=== PATIENT | male | born 1950 ===

== ENCOUNTER 2019-11-30 05:54 | Inpatient (IN) | payer MEDICARE, SELFPAY ==
[2019-11-29 07:23] VITALS: BMI 28.7
[2019-11-30] VITALS (17 sets, daily range): BP systolic 118–171; BP diastolic 51–93; PULSE 71–91; RESP 6–19; TEMP 36.1–36.8; O2SAT 63–99; BMI 30.2
--- NOTE | 2019-11-30 | DI.RAD.S_ITS ---
PROCEDURE: XR LUMBAR SPINE 2-3V INDICATIONS: L3-4 XLIF WITH POSTERIOR INSTRUMENTATION TECHNIQUE: 4 views of the lumbar spine were acquired. COMPARISON: None. FINDINGS: Intraoperative spot fluoroscopic views demonstrating L3-L4 posterior spinal fixation hardware with interbody cage graft. There is expected intraoperative alignment Dictated by: Zaheer Boss M.D. on 11/30/2019 at 12:56 Approved by: Zaheer Boss M.D. on 11/30/2019 at 12:57
[2019-11-30] MEDS: LACTATED RINGERS 1,000 ML 42 ML IV ×2 (07:10→09:38)
--- NOTE | 2019-11-30 07:22 | P.OP_ITS ---
Operative Date/Time/Diagnoses Date of procedure: 11/30/19 Time of procedure: 11:01 Pre-op diagnosis: Lumbar stenosis with radiculopathy Lumbar spondylolisthesis Post-op diagnosis: same Procedure & Clinicians Procedure: L3-4 anterior fusion with cage L3-4 posterior fusion L3, L4 screws Iliac crest bone graft aspirate L3-4 laminectomy Use of microscope Placement of epidural catheter Same procedure as scheduled: Yes Indications: [age] year old male with intractable pain from stenosis. They had failed conservative management and requested operative intervention. Risks and benefits of surgery were discussed and appropriate consents were obtained. Surgeon: Khang Irwin Sand Cutting Machine Operator: Gina Guerra Anesthesia Type: General Operative Notes Findings: None Closure Type: primary Specimen(s): none sent Prosthetic devices, grafts, tissues, transplants, or devices: NuVasive MAS Reline screws and XLIF cage Applied: catheter Estimated Blood Loss (mL): 20 Blood products transfused: none Procedure in detail: Patient was brought to the operating room and intubated on the table. Time-out was performed. They were then rolled over to the lateral decubitus position with the [id number]. The table was bent and they were taped down in the correct position. X-rays were taken to confirm a true AP and lateral. Preoperative antibiotics were given. The left flank was prepped and draped in standard sterile fashion. Using fluoroscopy, a 3 cm incision was made above the iliac crest. We bluntly dissected down with Metzenbaum scissors and split the 3 abdominal muscle layers. We dissected out the retroperitoneal space and using finger guidance, brought our 1st dilator down to the psoas muscle. Using neuromonitoring and fluoroscopy, we placed it through the psoas onto the L3-4 disc space in an anterior position and gradually pulled the dilator posteriorly along the disc space. We placed our guidewire and measured our depth for the retractor. We then dilated with the next 2 dilators and then placed our retractor over the dilators. Position was confirmed with fluoroscopy and the retractor was locked down to the bar. We opened up the retractor and checked with neuro monitoring. We then placed the mary alice and again checked with neuro monitoring. The retractor was opened further and the ALL retractor was placed. An annulotomy was performed. We then performed a complete diskectomy with ring curette, pituitary, box osteotome. A López was advanced across the disc space under fluoroscopy to release the lateral annulus on the opposite side. We then used sequentially larger trials and confirmed under fluoroscopy. An XLIF cage was packed with Osteocel bone graft and impacted into the L3-4 disc space with fluoroscopy for the anterior fusion at this level. The wound was irrigated. The retractor was closed down. The mary alice was removed. We carefully removed the retractor with direct visualization to make sure there was no neurovascular or abdominal injury. Final x-rays were taken. The muscle fascia was closed, superficial tissue was closed. The skin was closed. Sterile dressing was placed. The patient was then rolled over on the well-padded prone position on the Humphrey table. Using fluoroscopy for localization, a 5 cm incision was made on the right side. We percutaneously placed Jamshidi needles down the right pedicles of L3 and L4 under fluoroscopic guidance with neuro monitoring. These were switched out over guidewires. We then tapped and placed our MAS Reline screw shanks. We opened up the retractor and cleared out the gutter and medially along the lamina. The L3 and L4 transverse processes were decorticated with a bur. We then brought in the microscope. A laminectomy was performed at L3-4 with a bur and Kerrison rongeurs from the right-hand side. We carefully depressed the dura to reach to the opposite side and decompress the entire central canal. We cleared out the neural foramen. In the end the ball probe could be placed cephalad and caudally across to the opposite side in the foramen and everything was open. The wound was copiously irrigated. An epidural catheter was primed with 4mL of 0.5% bupivacaine, 100 mcg fentanyl, 4 mg Duramorph, 1 mg Stadol. The dura was depressed under the cephalad lamina with a ball probe and the epidural catheter was gently advanced 6 cm cephalad. The screw heads were placed on the shanks. The filiberto was measured and placed and locked down with set screws. A small stab incision was made over the PSIS and a Jamshidi needle was placed into the iliac crest and several mL of bone marrow was aspirated. This was mixed with our locally harvested bone graft as well as the remaining Osteocel and placed in the posterolateral gutter for fusion at L3- 4. The fascia was then closed. The epidural catheter was then injected without resistance. The catheter was pulled and we closed more over the fascia. We then went over to the left side. Again using fluoro a 4 cm incision was made on the left. Jamshidi needles were advanced on the left pedicles of L3 and L4 using fluoroscopy and neural monitoring. These were switched to guidewires, tapped, and the screws were placed. A filiberto was placed and locked down with the set screws. The wound was irrigated. The fascia was closed. Vancomycin powder was placed in the wounds. The superficial and skin were closed. Sterile dressing was placed. The patient was then rolled over, extubated, brought to the recovery room with no complications. Complications: none Post-operative Condition: stable Disposition: PACU Plan for aftercare: Inpatient. Up with PT.
--- NOTE | 2019-11-30 07:22 | PM.PREOP ---
Pre-operative Note Interval Note History & Physical reviewed/Exam performed by Physician: Yes Changes to H&P: No
[2019-11-30] MEDS: CEFAZOLIN 2 GM/100 ML FROZ.PIGGY IV ×3 (07:50→23:25)
--- NOTE | 2019-11-30 08:29 | SUR.OPER ---
Right lateral on padded OR table. Head on pillow, gel axillary roll, pillow to support left arm. Legs flexed, pillows between legs, gel pad under down leg and ankle. Multiple passes of 3 inch cloth tape across shoulder, hip, upper and lower legs to secure patient on OR table.
--- NOTE | 2019-11-30 08:29 | SUR.OPER ---
Prone on spine table, head in foam head support, padded chest and pelvic supports, gel pad at knees, lower legs supported by pillows; nipples, genitalia and toes free of pressure, arms secured on foam padded arm boards at <90 degrees abduction. Tape over blanket at thigh secured to table.
[2019-11-30] MEDS: SODIUM CHLORIDE 0.9% 1,000 ML, GENTAMICIN 80 MG IRR ×2 (08:42→08:43)
[2019-11-30] MEDS: VANCOMYCIN 1,000 MG VIAL 1000 MG TOP (08:42)
[2019-11-30] MEDS: THROMBIN (RECOMBINANT) 5,000 UNIT VIAL 5000 UNIT TOP (08:42)
[2019-11-30] MEDS: BUPIVACAINE 0.5% (PF) 4 ML, MORPHINE-PF 4 MG, BUTORPHANOL 1 MG, fentaNYL 100 MCG INJ (08:44)
[2019-11-30] MEDS: hydrOXYzine pamoate 25 MG CAPSULE PO (12:15)
--- NOTE | 2019-11-30 12:19 | SUR.PHASEI ---
Patient denies pain/nausea. Gave vistaril for itchy nose. BRIANNE's x4.
[2019-11-30] MEDS: LACTATED RINGERS 1,000 ML 125 ML IV (13:15)
[2019-11-30] MEDS: GABAPENTIN 300 MG CAPSULE PO ×2 (13:16→21:25)
[2019-11-30] MEDS: CELECOXIB 200 MG CAPSULE 400 MG PO (13:16)
[2019-11-30] MEDS: ACETAMINOPHEN 325 MG TABLET 975 MG PO (13:16)
[2019-11-30] MEDS: ONDANSETRON 4 MG/2 ML INJ IV ×2 (14:53→19:46)
[2019-11-30] MEDS: DEXAMETHASONE 10 MG/ML VIAL IV (15:03)
--- NOTE | 2019-11-30 15:18 | PC.NURSE ---
Ortho: Various issues since patient arrival. First - O2 sat in the 80's when he falls asleep. Does appear to have brief apnea episodes. O2 is off and on per pt, he removes it. Pt determined about his care needs and what he wants and doesn't want. RT has been working with pt. When he is awake his sats are in the low 90's. Asleep sats down to 82%. If wears O2 when he falls asleep his sat will be 90-92%. LEOPOLDO Munguia reported rr down to 1. Have not seen pt as low as that but rr has been down to 12 for this nurse, pt tends to breath shallow and abd breaths. Pt doesn't report a hx of sleep apnea but does appear to have it. Non smoker. Rt is deciding O2 needs. PT reported a bp with dyastolic in the 100's. On repeat bp check the dys was down to the 70's which is where he has been, currently bp is 142/73. Next issue was itching. Pt reported severe itching, got some vistaril in pacu, refused more when here in room as well as benadryl. Reports both medications make him to sleepy. Requesting nubain. 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 Did get order for same but currently there is a nation wide shortage and pt made aware. Last issue is nausea, pt refused to use an emesis bag and vomited in the garbage can. Dr. Irwin here right after pt vomited and he was made aware of O2 sats, possible undiagnosed sleep apnea, bp, itching and pt's frustration of not having relief of his itching. See new orders. Pt did receive zofran and dexamethasone. Pt reports for now nausea has resolved, itching is much improved, still present but not as intense. Cont w/poc.
--- NOTE | 2019-11-30 15:46 | PT-IP ANOTE ---
PT orders received and chart reviewed. Met with pt to initiate PT evaluation, but he had 3 episodes emesis during conversation and BP ranging 161/99 to 180/103. This PT gathered subjective history and charted same but deferred objective exam. Checked on pt at 1545 to complete evaluation, but pt was sleeping soundly, SpO2 ~96% on 9L/min high flow O2 via mask. May attempt to check on pt one more time before end of day. If unable, will follow up morning of 12/01/19.
[2019-11-30] MEDS: METOCLOPRAMIDE 10 MG/2 ML INJ IV (19:46)
[2019-11-30] MEDS: CELECOXIB 200 MG CAPSULE PO (21:25)
[2019-11-30] MEDS: DOCUSATE 100 MG CAPSULE PO (21:25)
[2019-11-30] MEDS: SENNOSIDES 8.6 MG TABLET 17.2 MG PO (21:25)
[2019-11-30] MEDS: raNITIdine 150 MG CAPSULE PO (21:25)
[2019-11-30] MEDS: LORazepam 2 MG/ML INJ 0.25 MG IV (23:31)
[2019-12-01] VITALS (9 sets, daily range): BP systolic 116–140; BP diastolic 59–81; PULSE 78–96; RESP 15–18; TEMP 36.6–37.6; O2SAT 85–98
--- NOTE | 2019-12-01 04:22 | PC.NURSE ---
At start of shift Pt was on 9L Oxymask at start of shift. He took off his mask and held his sats on room air for about 5minutes and then desatted to 84%. He was placed back on 4L Oxymask and has been at around 96% since. He also vomitted at 2345 a large amount into the garbage can (refused emesis bag stating garbage can was easier). Ativan was given which proved effective. Denies any pain. LR@125mL/hr [place] patent with clear yellow urine. B/L SCDs on during night. Has not been OOB yet
[2019-12-01 05:38] LABS: Hematocrit 37.7 % (41-53); Hemoglobin 12.6 g/dL (13.5-17.5)
[2019-12-01] MEDS: ONDANSETRON 4 MG/2 ML INJ IV ×2 (05:57→11:03)
[2019-12-01] MEDS: METOCLOPRAMIDE 10 MG/2 ML INJ IV (05:57)
[2019-12-01] MEDS: LACTATED RINGERS 1,000 ML 125 ML IV ×3 (06:11→23:54)
[2019-12-01] MEDS: raNITIdine 150 MG CAPSULE PO ×2 (07:52→21:34)
--- NOTE | 2019-12-01 08:00 | PM.PNPO.1 ---
Subjective Subjective Date Patient Seen: 12/01/19 Time Patient Seen: 08:00 Interval history: Nausea and itching or much better. Minimal pain. Exam Vital Signs (past 8 hours): - 12/01/19 00:05 12/01/19 00:10 12/01/19 05:59 Temperature 98.1 F Pulse Rate 85 Respiratory Rate 15 Blood Pressure 133/72 Pulse Oximetry 85 L 95 95 Oxygen Delivery Method Oximask Oxygen Flow Rate 4 Const Orientation: alert and oriented x3 Back/Spine/Pelvis Other: CDI. 5/5 motor both lower extremities Objective Labs Result Diagrams: 12/01/19 05:07 Labs: Laboratory Results - last 24 hr 12/01/19 05:07 Hgb 12.6 L Hct 37.7 L Assessment & Plan Post-op Postoperative Procedures: Procedures Operation Date: 11/30/19 07:45 Actual Procedures Side Surgeon p L34 laminectomy and anteroior/posterior instrumentated fusion w/ bone graft Khang Irwin MD he is doing much better now that the nausea and the itching are improved. We are going to mobilize him today with physical therapy. Anticipate discharge home in the next few days.
--- NOTE | 2019-12-01 09:13 | PT.IIE ---
Current Diagnoses Spondylolisthesis, lumbar region (11/30/19) Spinal stenosis, lumbar region without neurogenic claudication (11/30/19) Surgery Performed Operation Date: 11/30/19 07:45 Actual Procedures p L34 laminectomy and anteroior/posterior instrumentated fusion w/ bone graft - Khang Irwin MD Surgical History (Last Updated 11/29/19 @ 07:42 by Neisha Braxton RN) Hx of arthroscopy of right knee (Acute ~1990) Medical History (Last Updated 11/29/19 @ 07:44 by Neisha Braxton RN) Heartburn (Acute) Palpitations (Acute) Prostatitis (Acute) Retinal tear of right eye (Acute) Sciatica (Acute) Physical Therapy Inpatient Evaluation/Re-Eval M1 PT/OT-IP Prior Functional Status Start: 11/30/19 13:26 Freq: NEEDED Status: Active Protocol: Document 12/01/19 09:13 AB (Rec: 12/01/19 12:08 AB [id number]) Medical Review Prior Functional Status Medical History Reviewed Yes Communication able to make needs known Mobility and Gait pt stated that he is independent with all mobilities and ambulation without AD Activities of Daily Living and IADL's Per OT's note: Pt states he was independent with all ADL's but slow with dressing lower body due to pain. He lives alone, drives, does all his own shopping, cooking, meds management. Social History Household Members none Living Arrangements Apartment/Condo Number of Floors (Floors) One Floor Number of Stairs To Enter/Railing? 12 steps to enter with bilateral wide rails and can only hold on to one rail at a time Home Environment Standard Height Toilet,Tub/ Shower Doors Additional Social History Comment pt stated that he plans to take a cab and go to a local apartment and when ready to go home will drive himself back home. M2 PT-IP Current Condition Start: 11/30/19 13:26 Freq: NEEDED Status: Active Protocol: Document 12/01/19 09:13 AB (Rec: 12/01/19 12:08 AB [id number]) Physical Therapy Current Condition Current Condition Evaluation Date 12/01/19 Treatment Diagnosis s/p L3-4 ant/post fusion/lami; difficulty in walking Onset Date 11/30/2019 Precautions Lumbar Precautions Log Roll,No Twisting,Limit Bending,Lifting Restriction of 10 lbs,Gait Belt above Incisional Area M3 PT-IP Subjective Start: 11/30/19 13:26 Freq: NEEDED Status: Active Protocol: Document 12/01/19 09:13 AB (Rec: 12/01/19 12:08 AB [id number]) Subjective Physical Therapy Visit Type Type Initial Evaluation Visit Start Time 09:13 Visit Stop Time 09:41 Total Visit Minutes 28 Number of FREIGHT DELIVERY DRIVER Visits 0 Physical Therapy Visit Comments Patient Comments pt agreeable to do PT Therapy Pain Assessment Pain When Pain Assessed During Mobility Pain Present Pain Present Pain Reported Location Back Intensity 3 Scale Used Numeric (1 - 10) Pain Management Techniques Re-positioning,Timing of Activity with Medications M4 PT-IP Mobility and Gait Start: 11/30/19 13:26 Freq: NEEDED Status: Active Protocol: Document 12/01/19 09:13 AB (Rec: 12/01/19 12:08 [id number]) PT-Bed Mobility Assessment Rolling Type of Rolling Log Rolling Level of Assist Minimal Assistance Supine to Sit Supine to Sit Minimal Assistance PT-Transfer Assessment Sit to and From Stand Sit to and from Stand Minimal Assistance,1 Person Assistance Equipment Transfer Assistive Device Gait Belt,Front Wheeled Walker Orthotic/Prosthetic Devices or Brace: No Transfers Transfer Destination Chair Transfer Technique Stand Step Pivot Transfer Ability Level of Assist Minimal Assistance,1 Person Assistance,Use of Upper Extremities Comments Mobility Comments pt stated that he has been nauseated. reviewed back precautions and log roll bed mobility. pt ocmpleted supine to sit min A and max cues. pt was able to sit on EOB SBA. c/o nausea and stated that he has to sit for ~ 20 min. BP checked 143/84. pt agreed to stand and transfer to the chair. completed sit to stand min A and cues and ocmpleted stand step transfer using FWW min A and cues. pt wanted to sit on chair for awile due to nausea. positioned pt on chair. call light and table placed within reach. Gait Assessment Comments Gait Comments able to take steps during transfers but did not ambulate due to c/o nausea PT-Balance Assessment Sitting Balance and Reactions Static Sitting Balance Ability Good Dynamic Sitting Balance Ability Good Standing Balance and Reactions Static Standing Balance Ability Fair Dynamic Standing Balance Ability Fair Device Used FWW M5 PT-IP Objective Assessments Start: 11/30/19 13:26 Freq: NEEDED Status: Active Protocol: Document 12/01/19 09:13 AB (Rec: 12/01/19 12:08 AB [id number]) Orientation Orientation/Cognition Level of Alertness Alert Orientation Name,Place,Situation Language Function Ability No Deficits Noted Safety Awareness Understands Safety Issues Memory Description No Deficits Noted Gross Range of Motion Lower Extremity ROM Assessment Within Functional Limits Strength Lower Extremity Strength Assessment Bilaterally Impaired Hip 3+/5 Knee 3+/5 Coordination Assessment Gross Coordination Gross Coordination WNL Sensation Assessment Sensation Gross Sensation WNL Muscle Tone Muscle Tone WNL Yes M6 PT-IP Treatment Start: 11/30/19 13:26 Freq: NEEDED Status: Active Protocol: Document 12/01/19 09:13 AB (Rec: 12/01/19 12:08 [id number]) Physical Therapy Treatment Education Education Provided Precautions,Weight Bearing Status,Post-Op Packet,Safety M7 PT-IP Assessment and Plan Start: 11/30/19 13:26 Freq: NEEDED Status: Active Protocol: Document 12/01/19 09:13 AB (Rec: 12/01/19 12:08 [id number]) PT Summary Assessment and Plan Potential Rehabilitation Potential Good Status of Condition at Evaluation Evolving Summary Impairments Pain,ROM,Strength,Balance, Coordination,Sensation,Tone, Cognition,Bed Mobility, Transfers,Gait,Activity Tolerance Assessment Summary pt requiring min A with mobility at this time and did not tolerate much activity due to c/o nausea. pt lives alone and will not have any assistance at home. d/c plan depending on progress in mobility. informed regarding need for FWW and pt aware but has not decided if he wants to purchase one. Goals Bed Mobility Goal Independent Transfer Goal Independent,Front Wheeled Walker Gait Goal Independent,Front Wheel Walker Gait Distance 200 Other Goals up/down 12 steps 1 rail mod I Days to Meet Goals 5 Frequency of Treatment Frequency Of Treatment Twice a Day Treatment Plan Physical Therapy Treatment Plan Bed Mobility Training,Transfer Training,Gait Training, Therapeutic Exercise,Balance Retraining,Post Op Education, Discharge Planning,Hot or Cold Pack,Neuromuscular Re-ed, Coordination Retraining,Manual Therapy Recommendations To Nursing Amount of Assist Needed 1 Person Assist Discharge Recommendations PT Discharge Recommendations Home with Assistance,Home Health
--- NOTE | 2019-12-01 09:13 | CM.IDA ---
Discharge Planning/Care Management CM Discharge Assessment Start: 12/01/19 09:04 Freq: Status: Active Protocol: Document 12/01/19 09:04 TABITHA (Rec: 12/01/19 09:12 TABITHA [id number]) Discharge Planning Assessment Assigned Tmr Teacher ROSA Cifuentes DPOA/Assigned Designee Name Haleigh Yusuf, sister Contact Information KYLE Herron [phone] Advance Directives? No Advance Directives on File No History Provided By Patient Prior Living Arrangements Apartment/Condo Household Members none Type of transporation used prior to Drives own vehicle admit Independent with ADL's Yes Is patient alert and oriented? Yes Barriers to Discharge Yes Comment Pt is POD#1 from spinal surgery w/Dr Irwin. PCP: N/A Payer: TRISHA/NAVDEEP Reviewed chart. Pt lives in [place], newly retire, PT assessment pending today. Per pre-anesthesia assessment on chart, pt has arranged no transportation home and no assist once home. Dr Irwin' s prog note indicates pt is expected to DC home in the next 1-2 days. This TECHNOLOGY INTERN will plan to assess further once PT has completed initial assessment and dispo recommendations. ROSA Miller Additional Comment Needs further assess Review Status In Process
--- NOTE | 2019-12-01 11:13 | OT.IP.EVAL ---
Current Diagnoses Spondylolisthesis, lumbar region (11/30/19) Spinal stenosis, lumbar region without neurogenic claudication (11/30/19) Surgery Performed Operation Date: 11/30/19 07:45 Actual Procedures p L34 laminectomy and anteroior/posterior instrumentated fusion w/ bone graft - Khang Irwin MD Past Medical History (Last Updated 11/29/19 @ 07:44 by Neisha Braxton, RN) Heartburn (Acute) Palpitations (Acute) Prostatitis (Acute) Retinal tear of right eye (Acute) Sciatica (Acute) Surgical History (Last Updated 11/29/19 @ 07:42 by Neisha Braxton RN) Hx of arthroscopy of right knee (Acute ~1990) Occupational Therapy Inpatient Evaluation/Re-Eval M1 PT/OT-IP Prior Functional Status Start: 11/30/19 13:26 Freq: NEEDED Status: Active Protocol: Document 12/01/19 11:13 PJRobb (Rec: 12/01/19 16:53 [id number] [id number]) Medical Review Prior Functional Status Medical History Reviewed Yes Diet/Fluid Consistency Regular Communication WNL Mobility and Gait pt states he ambulated independently without a device. Activities of Daily Living and IADL's Pt lives alone and was independent with all self care , IADLS, driving. 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 Prior Functional Level (Other details) Pt unable to identify any family member or friend who could assist him after Social History Household Members none Living Arrangements Apartment/Condo Number of Floors (Floors) One Floor Number of Stairs To Enter/Railing? 12 steps to enter with bilateral wide rails and can only hold on to one rail at a time Home Environment Standard Height Toilet,Tub/ Shower Doors Additional Social History Comment Pt has no DME at home. M2 OT-IP Current Condition Start: 12/01/19 16:28 Freq: Status: Active Protocol: Document 12/01/19 11:13 PJM (Rec: 12/01/19 16:53 PJM [id number]) Occupational Therapy Current Condition Current Condition Evaluation Date 12/01/19 Treatment Diagnosis decr'd self care, mobility s/p L3-4 ant/posterior fusion w/ post op N/V Diagnosis Onset Date 11/30/19 Post Operative Precautions Lumbar Precautions Log Roll,No Twisting,Limit Bending,Lifting Restriction of 10 lbs,Gait Belt above Incisional Area M3 OT- IP Subjective and Pain Start: 12/01/19 16:28 Freq: Status: Active Protocol: Document 12/01/19 11:13 PJM (Rec: 12/01/19 16:53 PJ [id number]) OT- Subjective Occupational Therapy Visit Type Type Initial Evaluation Visit Start Time 10:40 Visit Stop Time 11:13 Total Visit Minutes 33 Occupational Therapy Visit Comments Patient Comments I didn't know what to expect after this surgery. They didn't tell me. Patient/Caregiver Goals to resume independent living alone OT Pain Assessment Pain When Pain Assessed At Rest Pain Present Pain Present Denied Pain M4 OT- IP ADL's Start: 12/01/19 16:28 Freq: Status: Active Protocol: Document 12/01/19 11:13 PJM (Rec: 12/01/19 16:53 [facility] [id number]) OT [id number]-Lqeb-[id number] General Evaluation Self-Feeding Ability Independent Comments OT Self-Feeding Comments poor appetite due to nausea OT ADL-Grooming General Evaluation Grooming Ability Standby Assistance Areas Needing Assistance Retrieving/Set-up of Grooming Items,Face Washing Comments OT Grooming Comments seated in chair OT ADL-Oral Care Comments Oral Care Comments did not occur this session OT ADL-Dressing General Eval Lower Body Dressing Ability Maximum Assistance Assistive Devices Dressing Assistive Devices Long Handled Shoe Horn,Shearer Helper ,Sock Aid Comments OT Dressing Comments began education re: lower body dressing equipt options OT ADL-Toileting General Evaluation Toileting Ability Total Assistance Areas Needing Assistance Empty Catheter or Colostomy Comments OT Toileting Comments llanos still in place OT ADL-Bathing Comments OT Bathing Comments to be assessed as activity level improves M5 OT- IP IADL's Start: 12/01/19 16:28 Freq: Status: Active Protocol: Document 12/01/19 11:13 PJM (Rec: 12/01/19 16:53 PJ [id number]) OT-Instrumental Activities of Daily Living Deficits IADL Deficits Identified Deficits Home Safety Awareness Awareness of Need for Assistance at Home Decreased Awareness Ability to Problem Solve Emergency Able to Problem Solve Situations Home Safety Comments needs cues to problem solve strategies for tasks such as obtaining groceries Medication Management Medication Management No Deficits Identified Money Management Money Management No Deficits Identified Meal Preparation Meal Preparation Comments pt needs assist at present due to low activity tolerance Executive Director Global Brand Marketing Executive Director Global Brand Marketing Comments pt needs assist at present due to low activity tolerance and lumbar spine precautions Driving Driving Comments pt needs assist at present due to low activity tolerance M6 OT- IP Functional Cognition Start: 12/01/19 16:28 Freq: Status: Active Protocol: Document 12/01/19 11:13 PJM (Rec: 12/01/19 16:53 PJM [id number]) Cognitive Factors Limiting Selfcare Function Cognitive Ability Level of Alertness Alert Patient Orientation Name,Age,Birthday,Month,Date, Year,Day of Week,Place, Situation Attention Span Ability Capable of Focused Attention, Capable of Sustained Attention Ability to Follow Commands Able to Follow One Step Commands Memory Description No Deficits Noted Safety Awareness Decreased Ability to Apply Precautions,Underestimates Need for Assistance Problem Solving Ability Needs Assist to Identify Solutions Cognitive Comments Cognitive Assessment Comments Pt has flat affect and decreased insight into post op recovery needs. OT- Vision and Hearing OT- Hearing Assessment OT- Hearing Assessment WFL OT- Vision Assessment Visual Acuity Glasses All The Time M7 OT- IP Mobility and Balance Start: 12/01/19 16:28 Freq: Status: Active Protocol: Document 12/01/19 11:13 PJM (Rec: 12/01/19 16:53 PJM [id number]) OT-Transfer Assessment Comments Mobility Comments Pt seen up in recliner; see p. T. notes OT- Gait Assessment Comments Gait Ability Comments Pt seen up in recliner; see p. T. notes OT- Balance Assessment Sitting Balance and Reactions Static Sitting Balance Ability Good M8 OT- IP Objective Assessments Start: 12/01/19 16:28 Freq: Status: Active Protocol: Document 12/01/19 11:13 PJM (Rec: 12/01/19 16:53 PJM [id number]) OT Gross Range of Motion Upper Extremity Range of Motion Assessment Within Functional Limits OT Strength Upper Extremity Strength Assessment Within Functional Limits OT- Coordination Assessment Comments Coordination Comments BUE WNL OT-Muscle Tone Assessment Muscle Tone WNL Yes OT Sensation Assessment Comments Summary Comments BUE WNL per pt Edema Edema Absent M9 OT- IP Assessment and Plan Start: 12/01/19 16:28 Freq: Status: Active Protocol: Document 12/01/19 11:13 PJM (Rec: 12/01/19 16:53 PJM [id number]) OT Summary Assessment and Plan Potential Rehabilitation Potential Good Analytic Complexity at Evaluation Low Summary OT Impairments Pain,Functional Mobility, Grooming,Dressing,Toileting, Bathing,Toilet Transfers, Shower Transfers,Activity Tolerance Assessment Summary Low complexity OT assessment completed on this 69 yr old male admitted for L3-4 anterior/posterior fusion with significant post op nausea limiting activity tolerance this session. 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 Pt presents with significant performance deficits in activity tolerance, functional mobility/transfers, standing grooming, lower body dressing, bathing and toileting. Pt is unable to identify any family member or friend who can assist him after discharge and has no DME in place at home. Pt initially stated his d/c plan was to take cab to local mot and stay until able to drive himself home to [facility]. After discussion with BODY SHOP MECHANIC, d/c plan is now short term SNF to work on activity tolerance, higher level IADLS such as showering and light IADL tasks as pt needs to be completely independent to return home alone to second floor apartment. Pt will benefit from OT services to address the goals below. Goals Grooming Goal Standby Assistance Dressing Goal Standby Assistance,Elastic Shoe Laces,Long Handled Shoe Horn,Shearer Helper Toileting Goal Standby Assistance Bathing Goal Standby Assistance,Grab Bars, Hand Held Shower Sprayer,Long Handled Sponge or [place] Toilet Transfer Goal Standby Assistance Shower Transfer Goal Contact Guard Assistance Patient/Caregiver Education Goal Demonstrate Post-Op Precautions,Demonstrate Energy Conservation and Pacing Days to Meet Goals 3 Frequency of Treatment Frequency Of Treatment Once a Day Treatment Plan OT Treatment Plan ADL Training,Functional Mobility,Patient/Family Education,Discharge Planning Discharge Recommendations OT Discharge Recommendations SNF Rehab Home Equipment Needs to be determined pending progress
--- NOTE | 2019-12-01 13:20 | PT.IPTN ---
Current Diagnoses Spondylolisthesis, lumbar region (11/30/19) Spinal stenosis, lumbar region without neurogenic claudication (11/30/19) Surgery Performed Operation Date: 11/30/19 07:45 Actual Procedures p L34 laminectomy and anteroior/posterior instrumentated fusion w/ bone graft - Khang Irwin MD Physical Therapy Treatment Note M2 PT-IP Current Condition Start: 11/30/19 13:26 Freq: NEEDED Status: Active Protocol: Document 12/01/19 09:13 AB (Rec: 12/01/19 12:08 AB [id number]) Physical Therapy Current Condition Current Condition Evaluation Date 12/01/19 Treatment Diagnosis s/p L3-4 ant/post fusion/lami; difficulty in walking Onset Date 11/30/2019 Precautions Lumbar Precautions Log Roll,No Twisting,Limit Bending,Lifting Restriction of 10 lbs,Gait Belt above Incisional Area M3 PT-IP Subjective Start: 11/30/19 13:26 Freq: NEEDED Status: Active Protocol: Document 12/01/19 13:20 AB (Rec: 12/01/19 15:18 AB [id number]) Subjective Physical Therapy Visit Type Type Treatment Note Visit Start Time 13:20 Visit Stop Time 13:54 Total Visit Minutes 34 Number of STRAIGHT TOOTH GEAR GENERATOR OPERATOR Visits 0 Physical Therapy Visit Comments Patient Comments pt agreeable to do PT Therapy Pain Assessment Pain When Pain Assessed During Mobility Pain Present Pain Present Pain Reported Location Back Intensity 2 Scale Used Numeric (1 - 10) Pain Management Techniques Timing of Activity with Medications M4 PT-IP Mobility and Gait Start: 11/30/19 13:26 Freq: NEEDED Status: Active Protocol: Document 12/01/19 13:20 AB (Rec: 12/01/19 15:18 AB [id number]) PT-Bed Mobility Assessment Rolling Type of Rolling Log Rolling Level of Assist Standby Assistance Supine to Sit Supine to Sit Standby Assistance Sit to Supine Sit to Supine Standby Assistance PT-Transfer Assessment Sit to and From Stand Sit to and from Stand Contact Guard Assistance,1 Person Assistance Equipment Transfer Assistive Device Gait Belt,Front Wheeled Walker Orthotic/Prosthetic Devices or Brace: No Comments Mobility Comments pt completed sit to stand from chair CGA and cues. ambulated towards the stairs using FWW SBA to CGA. pt completed stair climbing then ambulated back to his room. completed supine<>sit log roll SBA and cues. pt requested to stay up on the chair and ambulated towards the chair using FWW SBA. positioned pt on the chair. call light and table placed within reach. Gait Assessment Gait Gait Assistance Required: Standby Assistance,Contact Guard Assist Distance (Feet) 200 Able to Maintain Weight Bearing Status Yes During Gait Assistive Devices Assistive Device Gait Belt,Front Wheeled Walker Orthotic/Prosthetic Devices or Brace: No Gait Deviations General Gait Pattern Antalgic,Decreased Stride Length,Decreased Feet Clearance Factors Limiting Gait Function Factors Limiting Gait Function Decreased Activity Tolerance, Decreased Strength,Pain,Poor Balance Comments Gait Comments presents with antalgic gait. Stair Climbing Assessment Evaluation Level of Assist On Stairs Contact Guard Assistance,1 Person Assistance Devices Stair Climbing Assistive Devices Right Railing Technique/Endurance Stair Climbing Direction Ascend and Descend Stair Climbing Technique Step Over Step,Step to Step Number of Steps Climbed 3 Stair Climbing Set # Repetitions (reps) 1 M5 PT-IP Objective Assessments Start: 11/30/19 13:26 Freq: NEEDED Status: Active Protocol: Document 12/01/19 09:13 AB (Rec: 12/01/19 12:08 AB [id number]) Orientation Orientation/Cognition Level of Alertness Alert Orientation Name,Place,Situation Language Function Ability No Deficits Noted Safety Awareness Understands Safety Issues Memory Description No Deficits Noted Gross Range of Motion Lower Extremity ROM Assessment Within Functional Limits Strength Lower Extremity Strength Assessment Bilaterally Impaired Hip 3+/5 Knee 3+/5 Coordination Assessment Gross Coordination Gross Coordination WNL Sensation Assessment Sensation Gross Sensation WNL Muscle Tone Muscle Tone WNL Yes M6 PT-IP Treatment Start: 11/30/19 13:26 Freq: NEEDED Status: Active Protocol: Document 12/01/19 13:20 AB (Rec: 12/01/19 15:18 AB [id number]) Physical Therapy Treatment Education Education Provided Precautions,Safety M7 PT-IP Assessment and Plan Start: 11/30/19 13:26 Freq: NEEDED Status: Active Protocol: Document 12/01/19 13:20 AB (Rec: 12/01/19 15:18 AB [id number]) PT Summary Assessment and Plan Potential Rehabilitation Potential Good Summary Impairments Pain,ROM,Strength,Balance, Coordination,Bed Mobility, Transfers,Gait,Activity Tolerance Progress Towards Goals Progressing Toward Goals Assessment Summary pt requiring SBA to CGA with mobility but continues to present with unsteady antalgic gait. pt lives alone and will not have any assist at home. pt needs to be more independent than current level and will benefit from SNF rehab. Goals Bed Mobility Goal Independent Transfer Goal Independent,Front Wheeled Walker Gait Goal Independent,Front Wheel Walker Gait Distance 200 Other Goals up/down 12 steps 1 rail mod I Days to Meet Goals 5 Frequency of Treatment Frequency Of Treatment Twice a Day Treatment Plan Physical Therapy Treatment Plan Bed Mobility Training,Transfer Training,Gait Training, Therapeutic Exercise,Balance Retraining,Post Op Education, Discharge Planning,Hot or Cold Pack,Neuromuscular Re-ed, Coordination Retraining,Manual Therapy Recommendations To Nursing Amount of Assist Needed 1 Person Assist Discharge Recommendations PT Discharge Recommendations SNF Rehab Transportation Needs at Discharge Wheelchair/Cabulance
--- NOTE | 2019-12-01 13:57 | CM.DPC ---
DCP Cont Met w/pt at bedside; reviewed DCP. therapy team recommending home w/ assistance According to our conversation: Pt lives in an apt in [facility]. 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 Pt admits to being ignorant about his needs for recovery. Pt has no prior experience w/recovering from surgery, has secured no DME to assist for a DC home; his original plan is to DC to a motel for a few days until he feels strong enough to drive himself home. Then reviewed benefit for SNF stay; pt's spinal surgery provides him an inpt stay and he has MCR/AARP. Pt agreeable to SNF instead of going to a motel w/no assistance and no secured DME if MCR will cover. Pt requests [place] facility [facility]. Placed call to April at [facility] and gave referral. 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
[2019-12-01] MEDS: PROCHLORPERAZINE 10 MG/2 ML VIAL 5 MG IV (14:12)
[2019-12-01] MEDS: ACETAMINOPHEN 325 MG TABLET 975 MG PO (14:16)
[2019-12-01] MEDS: GABAPENTIN 300 MG CAPSULE PO ×2 (14:18→21:34)
[2019-12-01] MEDS: DOCUSATE 100 MG CAPSULE PO ×2 (14:18→21:34)
[2019-12-01] MEDS: CELECOXIB 200 MG CAPSULE PO ×2 (14:18→21:34)
[2019-12-01] MEDS: ASPIRIN EC 81 MG TABLET PO (14:38)
--- NOTE | 2019-12-01 16:32 | PC.NURSE ---
Ortho: Still having nausea this am. Had just received zofran and reglan this am, did take his zantac this am. However still having nausea. Pt requesting phenergan several times and pharmacy was called and we no longer carry this med. Other suggestions offered such as scope patch or ativan, all refused. Pt did think up that compazine may help and md called with pt request and compazine given. Pt did think it was helping and did take his meds this afternoon. Has denied need for any pain medication. Did work with PT and has sat in chair most of day. Does follow his lami precautions but needs to be reminded about log rolling. Hopefully will feel better tomorrow. Cont w/poc.
[2019-12-01] MEDS: SENNOSIDES 8.6 MG TABLET 17.2 MG PO (21:34)
--- NOTE | 2019-12-01 21:40 | PC.NURSE ---
Addendum entered by Constance Bernal 12/01/19 21:46: Pt utilized incentive spirometer, reaching 3000. Education provided on need to continue to use every hour. Original Note: Water Inspector Note: Assumed care of patient at 1500 under supervision of SHREYA Macias. Pt has denied pain throughout shift and has not utilized any PRN pain medications. Highest pain reported as 2/10. Patient stated nausea has improved and has not needed to utilize any antiemetic medications this shift and was able to consume 100% of his dinner. Catheter still in place- verified placement of bag and that tubing is patent without any dependent loops. Patient has denied BM, but was given scheduled laxative medications this PM. Will continue to monitor. Inspected surgical dressing; appears C/D/I. There is a small blister forming upon the upper edge of the bandage. Educated patient on need to change bandage prior to discharge.
--- NOTE | 2019-12-01 22:40 | PC.NURSE ---
Assumed care of pt at 1500. Student nurse assisting with care and assessments under the supervision of this verse writer. Pt cooperative with care. Minimal to no pain this shift. Drsg c/d/i. Alford draining to gravity. Calling appropriately for needs.
[2019-12-02 05:00] VITALS: BP 142/82; PULSE 100; RESP 16; TEMP 37.6; O2SAT 92
[2019-12-02] MEDS: OXYCODONE IR 5 MG TABLET PO ×3 (05:12→12:24)
[2019-12-02] MEDS: ACETAMINOPHEN 325 MG TABLET 975 MG PO ×2 (05:13→13:06)
--- NOTE | 2019-12-02 06:36 | PC.NURSE ---
Pt doing well. Denies nausea. Only complained of 5 out of 10 pain this morning with movement. Relieved with 5mg Oxy and Tylenol. Up in chair this AM, 1p FWW doing well. Dressing to back is C/D/I. Some redness noted around tegaderm, miniscule blister forming. IVF stopped this morning. Prashanth d/c'ed at 0515 this morning. B/L Calf SCDs on throughout night.
--- NOTE | 2019-12-02 06:59 | PM.PNPO.1 ---
Subjective Subjective Date Patient Seen: 12/02/19 Time Patient Seen: 06:59 Interval history: He is doing much better. No more nausea. Pain is anywhere from 2-5. Still requiring some assist with physical therapy. Exam Vital Signs (past 8 hours): - 12/01/19 23:00 12/02/19 05:00 Temperature 99.6 F 99.6 F Pulse Rate 96 H 100 H Respiratory Rate 16 16 Blood Pressure 123/66 142/82 H Pulse Oximetry 93 92 Oxygen Delivery Method Room Air Oxygen Flow Rate 0 Const Orientation: alert and oriented x3 Back/Spine/Pelvis Other: CDI. 5/5 motor both lower extremities Objective Labs Result Diagrams: 12/01/19 05:07 Assessment & Plan Post-op Postoperative Procedures: Procedures Operation Date: 11/30/19 07:45 Actual Procedures Side Surgeon p L34 laminectomy and anteroior/posterior instrumentated fusion w/ bone graft Khang Irwin MD he is doing well. Progressing as expected. Still requiring some assist with therapy. Plan to discharge tomorrow.
[2019-12-02 08:00] VITALS: BP 138/73; PULSE 87; TEMP 37.2; O2SAT 95
[2019-12-02] MEDS: CELECOXIB 200 MG CAPSULE PO ×2 (09:42→21:37)
[2019-12-02] MEDS: ASPIRIN EC 81 MG TABLET PO (09:42)
[2019-12-02] MEDS: DOCUSATE 100 MG CAPSULE PO ×2 (09:42→21:37)
[2019-12-02] MEDS: LORATADINE 10 MG TABLET PO (09:42)
[2019-12-02] MEDS: raNITIdine 150 MG CAPSULE PO ×2 (09:42→21:37)
[2019-12-02] MEDS: GABAPENTIN 300 MG CAPSULE PO ×3 (09:42→21:37)
--- NOTE | 2019-12-02 12:00 | PT.IPTN ---
Current Diagnoses Spondylolisthesis, lumbar region (11/30/19) Spinal stenosis, lumbar region without neurogenic claudication (11/30/19) Surgery Performed Operation Date: 11/30/19 07:45 Actual Procedures p L34 laminectomy and anteroior/posterior instrumentated fusion w/ bone graft - Khang Irwin MD Physical Therapy Treatment Note M2 PT-IP Current Condition Start: 11/30/19 13:26 Freq: NEEDED Status: Active Protocol: Document 12/01/19 09:13 AB (Rec: 12/01/19 12:08 AB [id number]) Physical Therapy Current Condition Current Condition Evaluation Date 12/01/19 Treatment Diagnosis s/p L3-4 ant/post fusion/lami; difficulty in walking Onset Date 11/30/2019 Precautions Lumbar Precautions Log Roll,No Twisting,Limit Bending,Lifting Restriction of 10 lbs,Gait Belt above Incisional Area M3 PT-IP Subjective Start: 11/30/19 13:26 Freq: NEEDED Status: Active Protocol: Document 12/02/19 11:46 AW (Rec: 12/02/19 12:00 AW [id number]) Subjective Physical Therapy Visit Type Type Treatment Note Visit Start Time 09:52 Visit Stop Time 10:07 Total Visit Minutes 15 Number of FLIGHT RADIO OFFICER Visits 0 Physical Therapy Visit Comments Patient Comments Pt sitting up in chair, ready to participate with PT Therapy Pain Assessment Pain When Pain Assessed During Mobility Pain Present Pain Present Reassessed Location Back Intensity 3 Scale Used 3/10 at rest; unchanged with mobility Pain Management Techniques Timing of Activity with Medications M4 PT-IP Mobility and Gait Start: 11/30/19 13:26 Freq: NEEDED Status: Active Protocol: Document 12/02/19 11:46 AW (Rec: 12/02/19 12:00 AW [id number]) PT-Bed Mobility Assessment Rolling Type of Rolling Log Rolling Level of Assist Contact Guard Assistance,1 Person Assistance Supine to Sit Supine to Sit Standby Assistance Sit to Supine Sit to Supine Standby Assistance PT-Transfer Assessment Sit to and From Stand Sit to and from Stand Standby Assistance Equipment Transfer Assistive Device None,Gait Belt,Front Wheeled Walker Orthotic/Prosthetic Devices or Brace: No Transfers Transfer Destination Chair Transfer Technique pt ambulated without assistive device Transfer Ability Level of Assist Standby Assistance,Use of Upper Extremities Comments Mobility Comments Pt completed sit to stand from chair SBA and min cues. He ambulated to the stairs using FWW SBA. He ambulated back from the stairs without AD SBA . He then transferred to the bed, demonstrating log roll technique for sit <> supine SBA and then transferred back to the chair. Pt was positioned in the chair with call light and needs within reach. Gait Assessment Gait Gait Assistance Required: Standby Assistance Distance (Feet) 200 Able to Maintain Weight Bearing Status Yes During Gait Assistive Devices Assistive Device Gait Belt,Front Wheeled Walker Orthotic/Prosthetic Devices or Brace: No Gait Deviations General Gait Pattern Antalgic,Decreased Stride Length,Decreased Feet Clearance,Narrow Based Gait Factors Limiting Gait Function Factors Limiting Gait Function Decreased Activity Tolerance, Decreased Strength,Pain,Poor Balance Comments Gait Comments Pt ambulated to the stairs with FWW SBA but was observed to carry the walker for short distances instead of rolling it. He walked back from the stairs without AD SBA and completed 4-item DGI with score of 10/12. Stair Climbing Assessment Evaluation Level of Assist On Stairs Standby Assistance Devices Stair Climbing Assistive Devices Right Railing Technique/Endurance Stair Climbing Direction Ascend and Descend Stair Climbing Technique Step Over Step,Step to Step Number of Steps Climbed 3 Stair Climbing Set # Repetitions (reps) 6 Comments Stair Climbing Comments Pt with good tolerance for stair climbing, able to use both [id number] and step- to patterning on descent. M5 PT-IP Objective Assessments Start: 11/30/19 13:26 Freq: NEEDED Status: Active Protocol: Document 12/01/19 09:13 AB (Rec: 12/01/19 12:08 AB [id number]) Orientation Orientation/Cognition Level of Alertness Alert Orientation Name,Place,Situation Language Function Ability No Deficits Noted Safety Awareness Understands Safety Issues Memory Description No Deficits Noted Gross Range of Motion Lower Extremity ROM Assessment Within Functional Limits Strength Lower Extremity Strength Assessment Bilaterally Impaired Hip 3+/5 Knee 3+/5 Coordination Assessment Gross Coordination Gross Coordination WNL Sensation Assessment Sensation Gross Sensation WNL Muscle Tone Muscle Tone WNL Yes M6 PT-IP Treatment Start: 11/30/19 13:26 Freq: NEEDED Status: Active Protocol: Document 12/02/19 11:46 AW (Rec: 12/02/19 12:00 AW [id number]) Physical Therapy Treatment Education Education Provided Precautions,Safety M7 PT-IP Assessment and Plan Start: 11/30/19 13:26 Freq: NEEDED Status: Active Protocol: Document 12/02/19 11:46 AW (Rec: 12/02/19 12:00 AW [id number]) PT Summary Assessment and Plan Potential Rehabilitation Potential Good Summary Progress Towards Goals Progressing Toward Goals Assessment Summary Pt requiring no more than SBA for mobility but continues to present with antalgic, narrow- based gait. mDGI score of 10/ 12 is on the cusp of increased fall risk. Pt is increasing in self-efficacy related to ambulation and stair navigation. Anticipate safe discharge to home today or tomorrow. Goals Bed Mobility Goal Independent Transfer Goal Independent,Front Wheeled Walker Gait Goal Independent,Front Wheel Walker Gait Distance 200 Other Goals up/down 12 steps 1 rail mod I Days to Meet Goals 4 Frequency of Treatment Frequency Of Treatment Twice a Day Treatment Plan Physical Therapy Treatment Plan Bed Mobility Training,Transfer Training,Gait Training, Therapeutic Exercise,Balance Retraining,Post Op Education, Discharge Planning,Hot or Cold Pack,Neuromuscular Re-ed, Coordination Retraining,Manual Therapy Recommendations To Nursing Amount of Assist Needed Standby Assistance Discharge Recommendations PT Discharge Recommendations Home with Assistance,Home Health,SNF Rehab Other Discharge Recommendations home with HH vs SNF Transportation Needs at Discharge Private Vehicle,Wheelchair/ Cabulance
[2019-12-02 13:00] VITALS: BP 144/77; PULSE 82; RESP 14; TEMP 37.2; O2SAT 96
--- NOTE | 2019-12-02 14:20 | OT.IP.TRT ---
Current Diagnoses Spondylolisthesis, lumbar region (11/30/19) Spinal stenosis, lumbar region without neurogenic claudication (11/30/19) Surgery Performed Operation Date: 11/30/19 07:45 Actual Procedures p L34 laminectomy and anteroior/posterior instrumentated fusion w/ bone graft - Khang Irwin MD Occupational Therapy Treatment Note M2 OT-IP Current Condition Start: 12/01/19 16:28 Freq: Status: Active Protocol: Document 12/01/19 11:13 PJM (Rec: 12/01/19 16:53 PJM [id number]) Occupational Therapy Current Condition Current Condition Evaluation Date 12/01/19 Treatment Diagnosis decr'd self care, mobility s/p L3-4 ant/posterior fusion w/ post op N/V Diagnosis Onset Date 11/30/19 Post Operative Precautions Lumbar Precautions Log Roll,No Twisting,Limit Bending,Lifting Restriction of 10 lbs,Gait Belt above Incisional Area M3 OT- IP Subjective and Pain Start: 12/01/19 16:28 Freq: Status: Active Protocol: Document 12/02/19 14:20 PJM (Rec: 12/02/19 17:30 PJM [id number]) OT- Subjective Occupational Therapy Visit Type Type Treatment Note Visit Start Time 13:25 Visit Stop Time 14:20 Total Visit Minutes 55 Occupational Therapy Visit Comments Patient Comments I feel a lot better today. Patient/Caregiver Goals to go home tomorrow OT Pain Assessment Pain When Pain Assessed After Treatment Pain Present Pain Present Pain Reported Location Back Intensity 2 Scale Used Numeric (1 - 10) Description Aching,Acute M4 OT- IP ADL's Start: 12/01/19 16:28 Freq: Status: Active Protocol: Document 12/02/19 14:20 PJM (Rec: 12/02/19 17:30 PJM [id number]) OT OID-[place] General Evaluation Self-Feeding Ability Independent OT ADL-Grooming General Evaluation Grooming Ability Independent Areas Needing Assistance Combing/Brushing Hair Comments OT Grooming Comments standing at sink OT ADL-Oral Care General Eval Oral Care Ability Independent Comments Oral Care Comments standing in shower OT ADL-Dressing General Eval Upper Body Dressing Ability Independent Lower Body Dressing Ability Independent Areas Needing Assistance Pull-Over Shirt,Underpants/ Brief,Pants/Shorts,Socks Assistive Devices Dressing Assistive Devices Stile Ripsaw Operator,Sock Aid Comments OT Dressing Comments provided education and practice re: use of electrician maintenance and sock aid for lower body dressing OT ADL-Toileting General Evaluation Toileting Ability Independent OT ADL-Bathing Bathing Type Bathing Type Shower General Evaluation Bathing Ability Independent Devices Bathing Equipment Long Handled Sponge or [place], Hand Held Shower Sprayer Comments OT Bathing Comments Pt stood for entire shower. Provided education re: body mechanics and adapted techniques with long bath sponge and use of electrician maintenance for drying. M5 OT- IP IADL's Start: 12/01/19 16:28 Freq: Status: Active Protocol: Document 12/02/19 14:20 PJM (Rec: 12/02/19 17:30 PJM [id number]) OT-Instrumental Activities of Daily Living Deficits IADL Deficits Identified Deficits Home Safety Awareness Awareness of Need for Assistance at Home Good Awareness Ability to Problem Solve Emergency Able to Problem Solve Situations Medication Management Medication Management No Deficits Identified Money Management Money Management No Deficits Identified Meal Preparation Meal Preparation Comments Provided education re: body mechanics Order Clerk Order Clerk Comments Provided education re: body mechanics for laundry, dishes, grocery shopping with emphasis on lumbar spine precautions Driving Driving Comments Pt plans to drive himself home (3 hr trip) tomorrow, [place] M6 OT- IP Functional Cognition Start: 12/01/19 16:28 Freq: Status: Active Protocol: Document 12/02/19 14:20 PJM (Rec: 12/02/19 17:30 PJM [id number]) Cognitive Factors Limiting Selfcare Function Cognitive Ability Level of Alertness Alert Patient Orientation Name,Age,Birthday,Month,Date, Year,Day of Week,Place, Situation Attention Span Ability Capable of Focused Attention, Capable of Sustained Attention Ability to Follow Commands Able to Follow Multi-Step Commands Memory Description No Deficits Noted Safety Awareness No Deficits Noted Problem Solving Ability No deficits Noted Cognitive Comments Cognitive Assessment Comments Pt more alert with brighter affect today and cognition appears WNL. Pt actively engaging in problem solving adapted IADLS at home as pt does not want to ask anyone for help with IADLS. OT- Vision and Hearing OT- Hearing Assessment OT- Hearing Assessment WFL M7 OT- IP Mobility and Balance Start: 12/01/19 16:28 Freq: Status: Active Protocol: Document 12/02/19 14:20 PJM (Rec: 12/02/19 17:30 PJM [id number]) OT-Transfer Assessment Sit to and From Stand Sit to and from Stand Independent Transfers Transfer Ability Independent Technique Transfer Destination Chair,Shower Stall Transfer Technique Stand Step Pivot Devices Transfer Assistive Devices None OT- Gait Assessment Gait Gait Assistance Required: Independent Distance (Feet) 20 Assistive Devices Assistive Device None OT- Balance Assessment Sitting Balance and Reactions Static Sitting Balance Ability Good Dynamic Sitting Balance Ability Good Standing Balance and Reactions Static Standing Balance Ability Good Dynamic Standing Balance Ability Good Comments Other Balance Tests/Deviations/Treatment during shower and lower body : dressing M8 OT- IP Objective Assessments Start: 12/01/19 16:28 Freq: Status: Active Protocol: Document 12/01/19 11:13 PJM (Rec: 12/01/19 16:53 PJM [id number]) OT Gross Range of Motion Upper Extremity Range of Motion Assessment Within Functional Limits OT Strength Upper Extremity Strength Assessment Within Functional Limits OT- Coordination Assessment Comments Coordination Comments BUE WNL OT-Muscle Tone Assessment Muscle Tone WNL Yes OT Sensation Assessment Comments Summary Comments BUE WNL per pt Edema Edema Absent M9 OT- IP Assessment and Plan Start: 12/01/19 16:28 Freq: Status: Active Protocol: Document 12/02/19 14:20 PJM (Rec: 12/02/19 17:30 PJM [id number]) OT Summary Assessment and Plan Potential Rehabilitation Potential Good Summary Progress Towards Goals Safe For Discharge,Goals Met Assessment Summary Pt much improved today and able to achieve all OT goals this session as described above. Pt now appears safe for d/c home alone. No further OT services needed. Frequency of Treatment Frequency Of Treatment Discharge Discharge Recommendations OT Discharge Recommendations Home Transportation Needs at Discharge Private Vehicle
--- NOTE | 2019-12-02 14:22 | PC.NURSE ---
Day shift: Op-site dressing changed to Coversite today (1415) after Pt has a shower. Well approximated, elva intact, w/ no s/s of infection. Pt tolerated well. Pt cleared by PT and OT. Pt agrees to call staff w/ call light if needing anything. Call light in reach.
[2019-12-02 15:24] VITALS: BP 148/80; PULSE 89; RESP 20; TEMP 36.9; O2SAT 20
--- NOTE | 2019-12-02 16:05 | PT.IPTN ---
Current Diagnoses Spondylolisthesis, lumbar region (11/30/19) Spinal stenosis, lumbar region without neurogenic claudication (11/30/19) Surgery Performed Operation Date: 11/30/19 07:45 Actual Procedures p L34 laminectomy and anteroior/posterior instrumentated fusion w/ bone graft - Khang Irwin MD Physical Therapy Treatment Note M2 PT-IP Current Condition Start: 11/30/19 13:26 Freq: NEEDED Status: Active Protocol: Document 12/01/19 09:13 AB (Rec: 12/01/19 12:08 AB [id number]) Physical Therapy Current Condition Current Condition Evaluation Date 12/01/19 Treatment Diagnosis s/p L3-4 ant/post fusion/lami; difficulty in walking Onset Date 11/30/2019 Precautions Lumbar Precautions Log Roll,No Twisting,Limit Bending,Lifting Restriction of 10 lbs,Gait Belt above Incisional Area M3 PT-IP Subjective Start: 11/30/19 13:26 Freq: NEEDED Status: Active Protocol: Document 12/02/19 15:49 AW (Rec: 12/02/19 16:05 AW [id number]) Subjective Physical Therapy Visit Type Type Treatment Note Visit Start Time 15:08 Visit Stop Time 15:22 Total Visit Minutes 14 Number of HEADER BOSS Visits 0 Physical Therapy Visit Comments Patient Comments Pt feeling better after a shower, willing to participate with PT Therapy Pain Assessment Pain When Pain Assessed During Mobility Pain Present Pain Present Pain Reported Location Back Intensity 3 Scale Used 3/10 at rest; unchanged with mobility Pain Management Techniques Timing of Activity with Medications M4 PT-IP Mobility and Gait Start: 11/30/19 13:26 Freq: NEEDED Status: Active Protocol: Document 12/02/19 15:49 AW (Rec: 12/02/19 16:05 AW [id number]) PT-Bed Mobility Assessment Rolling Type of Rolling Log Rolling Level of Assist Independent,1 Person Assistance Supine to Sit Supine to Sit Standby Assistance Sit to Supine Sit to Supine Independent PT-Transfer Assessment Sit to and From Stand Sit to and from Stand Standby Assistance Equipment Transfer Assistive Device None,Gait Belt Transfers Transfer Destination Bed,Chair Transfer Ability Level of Assist Standby Assistance,Use of Upper Extremities Comments Mobility Comments Pt completed sit to stand from the chair SBA. After gait training, he sat EOB and practiced log roll with no cues. He was able to talk through the sequence perform without need for therapist cues both getting in and out of bed. He then tranferred from the bed to the chair SBA without AD. Gait Assessment Gait Gait Assistance Required: Standby Assistance Distance (Feet) 200 Able to Maintain Weight Bearing Status Yes During Gait Assistive Devices Assistive Device None,Gait Belt Gait Deviations General Gait Pattern Antalgic,Decreased Stride Length,Decreased Feet Clearance,Narrow Based Gait Factors Limiting Gait Function Factors Limiting Gait Function Decreased Activity Tolerance, Decreased Strength,Pain,Poor Balance Comments Gait Comments Pt ambulated to and from the stairs without AD SBA. Gait was steady with changing directions and tight turns. SBA required with head turns. Stair Climbing Assessment Evaluation Level of Assist On Stairs Standby Assistance Devices Stair Climbing Assistive Devices Right Railing Technique/Endurance Stair Climbing Direction Ascend and Descend Stair Climbing Technique Step Over Step,Step to Step Number of Steps Climbed 3 Stair Climbing Set # Repetitions (reps) 6 Comments Stair Climbing Comments Pt required no cues for safe stair management. He shows good tolerance with no evidence of fatigue after six sets. M5 PT-IP Objective Assessments Start: 11/30/19 13:26 Freq: NEEDED Status: Active Protocol: Document 12/01/19 09:13 AB (Rec: 12/01/19 12:08 AB [id number]) Orientation Orientation/Cognition Level of Alertness Alert Orientation Name,Place,Situation Language Function Ability No Deficits Noted Safety Awareness Understands Safety Issues Memory Description No Deficits Noted Gross Range of Motion Lower Extremity ROM Assessment Within Functional Limits Strength Lower Extremity Strength Assessment Bilaterally Impaired Hip 3+/5 Knee 3+/5 Coordination Assessment Gross Coordination Gross Coordination WNL Sensation Assessment Sensation Gross Sensation WNL Muscle Tone Muscle Tone WNL Yes M6 PT-IP Treatment Start: 11/30/19 13:26 Freq: NEEDED Status: Active Protocol: Document 12/02/19 15:49 AW (Rec: 12/02/19 16:05 AW [id number]) Physical Therapy Treatment Education Education Provided Precautions,Safety M7 PT-IP Assessment and Plan Start: 11/30/19 13:26 Freq: NEEDED Status: Active Protocol: Document 12/02/19 15:49 AW (Rec: 12/02/19 16:05 AW [id number]) PT Summary Assessment and Plan Potential Rehabilitation Potential Good Status of Condition at Evaluation Stable Summary Impairments Pain,ROM,Strength,Bed Mobility ,Transfers,Gait,Activity Tolerance Progress Towards Goals Progressing Toward Goals Assessment Summary Pt requiring SBA for mobility. He is appropriately confident with ambulation and stairs. Regarding driving home to [place], pt notes he will take the [place], so [place] break at that time and then another hour home with opportunities to stop along the way if needed. Anticipate safe discharge to home today or tomorrow. Goals Bed Mobility Goal Independent Transfer Goal Independent,Front Wheeled Walker Gait Goal Independent,Front Wheel Walker Gait Distance 200 Other Goals up/down 12 steps 1 rail mod I Days to Meet Goals 3 Frequency of Treatment Frequency Of Treatment Twice a Day Treatment Plan Physical Therapy Treatment Plan Bed Mobility Training,Transfer Training,Gait Training, Therapeutic Exercise,Balance Retraining,Post Op Education, Discharge Planning,Hot or Cold Pack,Neuromuscular Re-ed, Coordination Retraining,Manual Therapy Recommendations To Nursing Amount of Assist Needed Independent Discharge Recommendations PT Discharge Recommendations Home with Assistance,Home Health,Outpatient PT Other Discharge Recommendations home with HH vs OP PT depending on ability to leave home Transportation Needs at Discharge Private Vehicle,Wheelchair/ Cabulance
[2019-12-02] MEDS: OXYCODONE IR 10 MG TABLET PO ×2 (18:01→21:37)
[2019-12-02] MEDS: SENNOSIDES 8.6 MG TABLET 17.2 MG PO (21:37)
[2019-12-02 21:40] VITALS: BP 140/74; PULSE 86; RESP 18; TEMP 37.2
[2019-12-02 23:50] VITALS: BP 133/75; PULSE 77; RESP 16; TEMP 37.2; O2SAT 94
[2019-12-03 05:50] VITALS: BP 157/91; PULSE 85; RESP 16; TEMP 36.9; O2SAT 97
--- NOTE | 2019-12-03 07:38 | P.DS_ITS ---
History of Present Illness History of Present Illness Date Patient Seen: 12/03/19 Time Patient Seen: 07:38 Chief complaint: [id number] L3-4 Narrative: 69-year-old male with bilateral leg radiculopathy. He went through conservative management with therapy and medication. 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 He requested operative intervention. Discharge Providers Provider Date of admission: 11/30/19 05:54 Discharge Date: 12/03/19 Consults: 11/30/19 12:41 Consult to Occupational Therapy Evaluate & Treat Comment: Physician Instructions: Evaluate and treat Consult to Physical Therapy Evaluate & Treat Comment: Physician Instructions: Evaluate and Treat 11/30/19 14:55 Consult to Respiratory Therapy Evaluate & Treat Comment: Physician Instructions: Evaluate and treat Discharge provider: Khang Irwin MD Summary Hospital Course Discharge Diagnosis: Lumbar stenosis with radiculopathy Lumbar spondylolisthesis Hospital Course: He was brought to the operating room on 11/30/2019 where he und erwent a L3-4 anterior posterior fusion with laminectomy. Postoperatively he did very well. He began progressing with physical therapy and by postoperative day 3. Was independent with ambulation. His pain was under good control with oral medication. Status at Discharge Cognitive/behavioral status at discharge: oriented Functional status at discharge: uses cane/walker Overall status at discharge: patient is progressing back to baseline Exam Vital Signs (past 8 hours): - 12/02/19 23:50 12/03/19 05:50 Temperature 98.9 F 98.4 F Pulse Rate 77 85 Respiratory Rate 16 16 Blood Pressure 133/75 157/91 H Pulse Oximetry 94 97 Oxygen Delivery Method Room Air Oxygen Flow Rate 0 Const Orientation: alert and oriented x3 Back/Spine/Pelvis Other: CDI. 5/5 motor both lower extremities Objective Labs Result Diagrams: 12/01/19 05:07 Discharge Plan Discharge Plan Patient Disposition: Home Discharge comment: f/u 1.5 wks Discharge orders & Medications Prescriptions: New celecoxib [Celebrex] 200 mg Capsule 200 mg PO BID PRN (Reason: pain) Qty: 60 RF: 1 docusate sodium [DOK] 100 mg Capsule 100 mg PO BID PRN (Reason: constipation) Qty: 30 RF: 0 oxycodone 5 mg Tablet 5 mg PO Q3HR PRN (Reason: Pain, Moderate (4-6)) Qty: 30 RF: 0 Continued aspirin 650 mg Tablet,Delayed Release (Dr/Ec) 650 mg PO TID-QID RF: 0 acetaminophen [Acetaminophen Extra Strength] 500 mg Tablet 1,000 mg PO QID PRN (Reason: Pain) RF: 0 gabapentin 300 mg Capsule 300 mg PO TID RF: 0 famotidine 20 mg Tablet 20 mg PO BID RF: 0 cetirizine 10 mg Tablet 5 mg PO BID RF: 0 Discontinued naproxen sodium 220 mg Tablet 220 mg PO BID-TID PRN (Reason: Pain) RF: 0 Discharge Health Status Multidrug resistant organism: No MDRO Diet/Activity/Treatments Diet: Diet as Tolerated Activity: limited BLT 10 lbs Skin/Wound/Dressing Care Report to your healthcare provider any signs of infection, such as:: chills, fever, night sweats, increased pain, unusual drainage and unusual redness Dressing: may change and shower POD#5 Visit Report/Discharge Packet Instructions: DI for Laminectomy, DI for Prescription Opioid Use, DI for Lateral Lumbar Interbody Fusion Stand Alone Forms: Surgery Discharge
[2019-12-03] MEDS: GABAPENTIN 300 MG CAPSULE PO (08:24)
[2019-12-03] MEDS: CELECOXIB 200 MG CAPSULE PO (08:24)
[2019-12-03] MEDS: DOCUSATE 100 MG CAPSULE PO (08:25)
[2019-12-03] MEDS: raNITIdine 150 MG CAPSULE PO (08:25)
[2019-12-03] MEDS: ASPIRIN EC 81 MG TABLET PO (08:25)
[2019-12-03] MEDS: LORATADINE 10 MG TABLET PO (08:25)
[2019-12-03] MEDS: OXYCODONE IR 10 MG TABLET PO (08:27)
[2019-12-03 08:45] VITALS: BP 148/78; PULSE 87; RESP 18; TEMP 37.5; O2SAT 95
--- NOTE | 2019-12-03 09:17 | PT.IPTN ---
Current Diagnoses Spondylolisthesis, lumbar region (11/30/19) Spinal stenosis, lumbar region without neurogenic claudication (11/30/19) Surgery Performed Operation Date: 11/30/19 07:45 Actual Procedures p L34 laminectomy and anteroior/posterior instrumentated fusion w/ bone graft - Khang Irwin MD Physical Therapy Treatment Note M2 PT-IP Current Condition Start: 11/30/19 13:26 Freq: NEEDED Status: Discharge Protocol: Document 12/01/19 09:13 AB (Rec: 12/01/19 12:08 AB [id number]) Physical Therapy Current Condition Current Condition Evaluation Date 12/01/19 Treatment Diagnosis s/p L3-4 ant/post fusion/lami; difficulty in walking Onset Date 11/30/2019 Precautions Lumbar Precautions Log Roll,No Twisting,Limit Bending,Lifting Restriction of 10 lbs,Gait Belt above Incisional Area M3 PT-IP Subjective Start: 11/30/19 13:26 Freq: NEEDED Status: Discharge Protocol: Document 12/03/19 09:02 [place] (Rec: 12/03/19 10:25 [place] [id number]) Subjective Physical Therapy Visit Type Type Treatment Note Visit Start Time 09:02 Visit Stop Time 09:17 Total Visit Minutes 15 Number of MEDICAL SONOGRAPHER Visits 1 Physical Therapy Visit Comments Patient Comments Pt willing to work w/ therapy. Therapy Pain Assessment Pain When Pain Assessed During Mobility Pain Present Pain Present Pain Reported Location Back Intensity 4 Scale Used 3/10 standing, 4/10 w/ long distance ambulation Pain Management Techniques Timing of Activity with Medications M4 PT-IP Mobility and Gait Start: 11/30/19 13:26 Freq: NEEDED Status: Discharge Protocol: Document 12/03/19 09:02 [place] (Rec: 12/03/19 10:25 [place] [id number]) PT-Transfer Assessment Comments Mobility Comments Pt was standing at sink upon arrival from therapy and has been moving around room independently. Pt ambulated from room down to stairs and back SBA. Pt was able to recall 3/3 precautions . Gait Assessment Gait Gait Assistance Required: Standby Assistance Distance (Feet) 300 Able to Maintain Weight Bearing Status Yes During Gait Assistive Devices Assistive Device None,Gait Belt Orthotic/Prosthetic Devices or Brace: No Gait Deviations General Gait Pattern Antalgic,Decreased Stride Length,Decreased Feet Clearance,Narrow Based Gait Factors Limiting Gait Function Factors Limiting Gait Function Decreased Activity Tolerance, Decreased Strength,Pain,Poor Balance Comments Gait Comments Pt ambulated ~300 ft from room down to stairs and back w/ SBA. Pt has decreased stride length due to pain and guarding of low back. Pt remained balanced and had upright posture throughout ambulation w/ no cues and no signs or reports of fatigue. Stair Climbing Assessment Evaluation Level of Assist On Stairs Standby Assistance Devices Stair Climbing Assistive Devices Right Railing Technique/Endurance Stair Climbing Direction Ascend and Descend Number of Steps Climbed 3 Stair Climbing Set # Repetitions (reps) 2 Comments Stair Climbing Comments Pt required no cues during stair training and has no signs of fatigue. Pt is able to perform 3 stairs step over step ascending and descending x2 w/ R hand rail. PT-Balance Assessment Sitting Balance and Reactions Static Sitting Balance Ability Good Dynamic Sitting Balance Ability Good Standing Balance and Reactions Static Standing Balance Ability Good Dynamic Standing Balance Ability Fair M5 PT-IP Objective Assessments Start: 11/30/19 13:26 Freq: NEEDED Status: Discharge Protocol: Document 12/01/19 09:13 AB (Rec: 12/01/19 12:08 AB [id number]) Orientation Orientation/Cognition Level of Alertness Alert Orientation Name,Place,Situation Language Function Ability No Deficits Noted Safety Awareness Understands Safety Issues Memory Description No Deficits Noted Gross Range of Motion Lower Extremity ROM Assessment Within Functional Limits Strength Lower Extremity Strength Assessment Bilaterally Impaired Hip 3+/5 Knee 3+/5 Coordination Assessment Gross Coordination Gross Coordination WNL Sensation Assessment Sensation Gross Sensation WNL Muscle Tone Muscle Tone WNL Yes M6 PT-IP Treatment Start: 11/30/19 13:26 Freq: NEEDED Status: Discharge Protocol: Document 12/03/19 09:02 [place] (Rec: 12/03/19 10:25 [place] [id number]) Physical Therapy Treatment Education Education Provided Precautions,Safety Other Treatments Other Treatment Performed Discussed OP rehab for core and LE strengthening for protection of spine. M7 PT-IP Assessment and Plan Start: 11/30/19 13:26 Freq: NEEDED Status: Discharge Protocol: Document 12/03/19 09:02 [place] (Rec: 12/03/19 10:25 [id number] PT Summary Assessment and Plan Potential Rehabilitation Potential Good Status of Condition at Evaluation Stable Summary Impairments Pain,ROM,Strength,Bed Mobility ,Transfers,Gait,Activity Tolerance Progress Towards Goals Progressing Toward Goals Assessment Summary Pt is SBA for gait and stair training and required no cues throughout treatment. Pt recalls 3/3 precautions. Pt ambulated ~300 ft and completed 3 steps x2 w/ step over step pattern. Discussed OP rehabd for core stabilization and LE strengthening w/ pt for protection of spine. Pt is eager to go home and [place] ferry. Goals Bed Mobility Goal Independent Transfer Goal Independent,Front Wheeled Walker Gait Goal Independent,Front Wheel Walker Gait Distance 200 Other Goals up/down 12 steps 1 rail mod I Days to Meet Goals 3 Frequency of Treatment Frequency Of Treatment Twice a Day Treatment Plan Physical Therapy Treatment Plan Bed Mobility Training,Transfer Training,Gait Training, Therapeutic Exercise,Balance Retraining,Post Op Education, Discharge Planning,Hot or Cold Pack,Neuromuscular Re-ed, Coordination Retraining,Manual Therapy Recommendations To Nursing Amount of Assist Needed Independent Discharge Recommendations PT Discharge Recommendations Home with Assistance,Home Health,Outpatient PT Other Discharge Recommendations home with HH vs OP PT depending on ability to leave home Transportation Needs at Discharge Private Vehicle,Wheelchair/ Cabulance
--- NOTE | 2019-12-03 10:19 | PC.NURSE ---
Pt discharged via w/c without issues. IV removed. Pt has no complaints. Discharge education given.
--- NOTE | 2019-12-03 15:11 | CM.DPNOTE ---
DC Note: According to therapy team, pt has made a complete turn around and has been cleared for a safe return home. Pt plans to drive himself, slowly, to [facility] to [place] and then home. DC home this AM via pov. Alerted Jeanne at [facility] that pt did not require a SNF stay ROSA Miller
== END 2019-12-03 10:21 | disposition home or self-care (01) | DRG 455 ==
PROVIDERS: Admitting Provider Orthopaedic Surgery; Visit Provider Orthopaedic Surgery
PROC: 0SG00A0 Fusion of Lumbar Vertebral Joint with Interbody Fusion Device, Anterior Approach, Anterior Column, Open Approach (ICD-10-PCS; CPT 22558; principal; 2019-11-30 07:45)
DX: M48.061 Spinal stenosis, lumbar region without neurogenic claudication (principal); M43.16 Spondylolisthesis, lumbar region; M54.16 Radiculopathy, lumbar region; R11.0 Nausea; L29.9 Pruritus, unspecified
CPT/HCPCS: 72100; 76000; 85014; 85018; 94760; 94762; 97116; 97162; 97165; 97535; C1776; J0595; J0690; J0780; J1100; J1170; J2060; J2274; J2405; J2704; J2765; J3010